=== PATIENT | male | born 1955 | race Caucasian/White ===

== ENCOUNTER 2017-11-05 02:53 | Inpatient (IN) | payer OTHER ==
--- NOTE | 2017-11-05 03:03 | CPEKG ---
Heart Rate: 84 RR Interval: 714 P-R Interval: 176 QRSD Interval: 100 QT Interval: 368 QTC Interval: 436 P Robertson: 62 QRS Robertson: -34 T Wave Robertson: -3 EKG Severity - BORDERLINE ECG - EKG Impression: SINUS RHYTHM EKG Impression: LEFT AXIS DEVIATION EKG Impression: BORDERLINE T WAVE ABNORMALITIES Electronically Signed By: [place] 07-Nov-2017 07:06:09
--- NOTE | 2017-11-05 03:30 | EDPHY ---
H & P Stated Complaint: sob, syncope Time Seen by Provider: 11/05/17 03:00 HPI/ROS: Chief Complaint: Syncope, shortness of breath HPI: A 62-year-old male who is visiting from [place]. He arrived at [place] about 24 hr prior to his presentation emergency department. Patient has visited and stayed for several months in the summertime at that elevation in the past. Patient had a syncopal episode. He was transported to [facility]. There he was noted to have an abnormal ECG with T-wave inversions. Patient also had a abnormal troponin at 0.161. Patient does not have any medical history. Takes no medicines. No family history of coronary disease. Does not smoke. No leg pain or swelling. Did have some shortness of breath was noted to be hypoxic with a 2 L oxygen requirement while in [facility]. Patient was transferred to [facility] for further evaluation. He is currently without complaint. He had no chest pain. No nausea or vomiting. No prior history of syncopal episodes in the past. ROS: 10 point Review of Systems is negative except as noted in the HPI. PMH: Denies Social History: No smoking, occasional alcohol, no recreational drug use Family History: non-contributory Physical Exam: Gen: Awake, Alert, No Distress HEENT: Nose: no rhinorrhea Eyes: PERRLA, EOMI Mouth: Moist mucosa Neck: Supple, no JVD Chest: nontender, lungs clear to auscultation Heart: S1, S2 normal, no murmur Abd: Soft, non-tender, no guarding Back: no CVA tenderness, no midline tenderness Ext: no edema, non-tender Skin: no rash Neuro: CN II-XII intact, Sensation grossly intact, Strength 5/5 in bilateral upper and lower extremities - Personal History Current Tetanus Diphtheria and Acellular Pertussis (TDAP): Yes - Medical/Surgical History Hx Asthma: No Hx Chronic Respiratory Disease: No Hx Diabetes: No Hx Cardiac Disease: No Hx Renal Disease: No Hx Cirrhosis: No Hx Alcoholism: No Hx HIV/AIDS: No Hx Splenectomy or Spleen Trauma: No Other PMH: cellulits - Social History Smoking Status: Current every day smoker Constitutional: Initial Vital Signs Temperature (C) 36.6 C 11/05/17 03:00 Heart Rate 88 11/05/17 03:00 Respiratory Rate 18 11/05/17 03:00 Blood Pressure 119/84 H 11/05/17 03:00 O2 Sat (%) 92 11/05/17 03:00 O2 Delivery Mode Room Air Allergies/Adverse Reactions: No Known Allergies Allergy (Unverified 11/05/17 03:01) Home Medications: Medication Instructions Recorded Aspirin 81mg (*) 11/05/17 Zyrtec 11/05/17 Medical Decision Making - Diagnostics EKG Interpretation: ECG time 3:01 a.m., sinus rhythm with a rate of 84. Left axis deviation, T- wave inversions from V1 through V4. ECG is unchanged from 1 earlier this morning. No acute ischemia. ED Course/Re-evaluation: I have reviewed the patient's records from [facility]. His studies are as follows. Basic metabolic panel: Sodium, 141, potassium 3.7, chloride 1 awake, carbon dioxide 22, glucose 109, BUN 11, creatinine 0.8. D- dimer is negative white blood cell count is 11.1, hemoglobin is 16, hematocrit 47.1, platelet count is 218. Troponin is 0.161. ECG has sinus rhythm. T-wave inversions from V1 through V4. Questionable Q-waves in leads 3. Patient is satting at 90% on room air. Repeat ECG shows no acute changes. Troponins been ordered. I have discussed with . Chest x-ray is a portable film with decreased inspiratory effort. Some cephalization. Patient is satting 90% on room air here. Repeat ECG is unchanged. Troponin is pending. I have discussed with Dr. Mclean who admit for further evaluation and check serial troponins. - Data Points Laboratory Results: 11/05/17 03:10 Troponin I 0.134 ng/mL H ng/mL (0.000-0.034) Departure - Departure Disposition: [facility] Inpatient Acute Clinical Impression: Syncope, Elevated troponin Condition: Fair Referrals: Patient,NotPresent [Unknown] - As per Instructions
--- NOTE | 2017-11-05 06:05 | PDGENHP ---
History and Physical - Chief Complaint Shortness of breath and syncope - History of Present Illness Source - patient provides history appears reliable. His is at bedside supplements details. EMR reviewed as well as accompanying paper chart from [place]. Case discussed with ED provider. HPI - pleasant 62-year-old gentleman with no significant past medical history who presents emergency department from [place] ED with complaints of increasing dyspnea and a syncopal episode that occurred this evening. Patient is visiting from [facility]. He has made several trips to [place] in the past. 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 Patient arrived with his 2 days ago on early Sunday morning. Patient reports that he was fatigued due to the driving. He had some minimal foot edema but no calf pain or swelling. Patient subsequently developed a little bit of shortness of breath which is not unusual when he comes elevation. Patient's symptoms progressed in this evening he noted some increased work of breathing and worsening fatigue. He denies any history of chest pain adamantly however when he came back from the bathroom in the evening before bed patient reports he felt a little lightheaded and short of breath. He grabbed his chest and told his "I think I am having a heart attack." At that point patient appeared to be sliding off the bed with his eyes open but unresponsive per the . She assisted him to the floor where patient remained unresponsive. He did not appear to be breathing and she"thought he was " the total time lapse of patient's symptoms lasted approximately 3 min. Patient did not receive any CPR. He did subsequently wake up and was verbal. Patient presented to [place] via EMS after called 911. Initial EMS report noted room air sat in the mid 80s with tachycardia. Patient reported to them that he felt fine. Patient received 324 mg of ASA. He denies any history of chest pain or angina. He denies any family history of cardiac coronary artery disease. He has not had a stress test previously. Patient does smoke cigars several per day or more History Information - Allergies/Home Medication List Allergies/Adverse Reactions: No Known Allergies Allergy (Unverified 11/05/17 03:01) Home Medications: Aspirin 81mg (*) 11/05/17 [Last Taken Unknown] Zyrtec 11/05/17 [Last Taken Unknown] I have personally reviewed and updated: family history, medical history, social history, surgical history - Past Medical History Additional medical history: Cellulitis, allergic rhinitis - Surgical History Reports: no pertinent surgical hx Additional surgical history: Denies - Family History Additional family history: Mother-DVT postoperatively. Negative for CAD or CVA - Social History Smoking Status: Current every day smoker Tobacco Use: Cigar (Three or more daily) Alcohol Use: None Drug Use: None Additional social history: Patient is . Lives primarily in [facility]. Cor status-full Review of Systems Review of Systems: ROS: 10pt was reviewed & negative except for what was stated in HPI & below Constitutional: Reports: no symptoms, other (Patient with URI approximately 2 weeks ago resolved) EENMT: Reports: no symptoms Cardiac: Reports: edema (Ft bilaterally), lightheadedness. Denies: palpitations Respiratory: Reports: cough, shortness of breath, other (See HPI) Gastrointestinal: Reports: no symptoms Genitourinary: Reports: no symptoms Muscolosketal: Reports: no symptoms Skin: Reports: no symptoms Neurological: Reports: no symptoms Physical Exam Physical Exam: Initial vital signs at [place] BP 120/81 pulse 103 respiratory rate 22 temperature 98.3 pulse ox 85% on room air Selected Entries 11/05/17 03:00 Blood Pressure Automatic Method Heart Rate 88 Respiratory 18 Rate O2 Sat (%) 92 Temperature (C) 36.6 C Blood Pressure 119/84 H Mean Arterial 95 Pressure (MAP) O2 Delivery Room Air Mode Temperature Oral Source Temp Pulse Resp BP Pulse Ox 36.8 C 90 22 H 108/63 91 L 11/05/17 05:26 11/05/17 05:26 11/05/17 05:26 11/05/17 05:26 11/05/17 05:26 Constitutional: no apparent distress, obese, other (NAD. Patient is sitting up in bed. at bedside.) Eyes: PERRL, anicteric sclera, EOMI, No scleral injection Ears, Nose, Mouth, Throat: dry mucous membranes, other (No nasal discharge. No oropharyngeal erythema or exudates.), No poor dentition Cardiovascular: regular rate and rhythym, no murmur, rub, or gallop, pulses symmetric bilaterally, No systolic murmur, No edema Peripheral Pulses: 2+: dorsalis-pedis (R), dorsalis-pedis (L) Respiratory: no respiratory distress, inspiratory crackles (Bibasilar left greater than right), No expiratory wheeze, No respiratory distress Gastrointestinal: normoactive bowel sounds, soft, non-tender abdomen, no palpable masses, other (Obese), No distension Genitourinary: no bladder tenderness, No hollingsworth in urethra Skin: warm, normal color, no rashes or abrasions, No mottled Musculoskeletal: full muscle strength, other (Patient sits up independently. Gait is normal.), No generalized weakness Neurologic: AAOx3, sensation intact bilaterally, No weakness, No facial droop ( Grossly nonfocal exam.) Psychiatric: interacting appropriately, not anxious, not encephalopathic, thought process linear Lab Data & Imaging Review Laboratory studies from [place] WBC 11.1, H&H 16.047.1, MCV of 93.0, platelet count 218, no bands D-dimer is negative Sodium 141, potassium 3.7, chloride 108, CO2 22, glucose 109, BUN 11, creatinine 0.8, GFR greater than 60, calcium 8.7 Troponin 0.161 Ethyl alcohol less than 10 Troponin I 0.134 ng/mL (0.000-0.034) H 11/05/17 03:10 Imaging Review: Chest x-ray from [place] was reviewed with [facility] ED provider. Dose minimal cardiomegaly. Pulmonary vascular congestion. Patient with the linear atelectasis in the right middle lobe. Visualized and Interpreted EKG results: Yes EKG additional interpertation: EKG from [place] 11/04/2017 at 11:22 p.m.- normal sinus rhythm rate 99. Q-waves in inferior leads and subtle T-wave inversions in the inferior with leads as well. No acute ST elevations. EKG at [facility] 11/05/17 at 3:01 a.m.-normal sinus rhythm in the 80s. Left axis deviation. Q-waves persists in lead [address] V AVF. No acute ST changes T- wave inversion and flattening in the inferior leads not significantly changed. Assessment & Plan Assessment: Syncope (Acute) - differential diagnosis including hypoxia related to altitude and possible HAPE versus ACS versus less likely neurologic. Patient's D-dimer was negative. At this time patient saturating 90% on room air down from [place] on in altitude. Will hold off on any diuretics at this time. Will plan for an echocardiogram and pending patient's troponins consider stress testing. Patient is status post 324 mg of aspirin prior to arrival at [facility]. Elevated troponin (Acute) - currently down trending slightly. This likely represents demand ischemia. Patient is adamant that he has not had experienced any chest pain rather he felt like his chest was tight knee was tight because he could not take in a deep breath. Patient without any history of stress testing previously. He does have some old Q-waves on the inferior leads on his EKG that remains unchanged. Additionally his sit T-wave inversion which could be related to patient's hypoxia. Will repeat troponin and further discuss with Cardiology in the morning as per day team. Hypoxia - supplemental oxygen p.r.n. to maintain O2 sats greater than 90%. Patient will require exertional pulse ox prior to discharge to ensure that he is not require supplementation at home. Tobacco use-cessation will be encouraged. Patient without any previous history of COPD or asthma. FEN - patient able to tolerate liquids. Will hold off on IV antibiotics with concerns for possible pulmonary edema. Electrolyte monitoring and replacement if needed. PPx - SCDs. Lovenox if patient should stay additional day. Course status is full Disposition patient mid observation at this time on PCU floor for further evaluation and testing.
[2017-11-05] MEDS ORDERED: ALBUTEROL 3 ML DEYVIAL IH PRN (06:33)
[2017-11-05] MEDS ORDERED: ACETAMINOPHEN 325 MG TAB PO PRN (06:33)
[2017-11-05] MEDS ORDERED: HYDROCODONE/APAP 5/325 TAB PO PRN (06:33)
[2017-11-05] MEDS ORDERED: ONDANSETRON 4 MG/2 ML VIAL IVP PRN (06:33)
--- NOTE | 2017-11-05 09:55 | ECHO ---
[email or web address] [address] [address] Main: [phone] Fax: Transthoracic Echocardiogram Name: ANA PALUMBO MR#: [id number] Study Date: 11/05/2017 Study Time: 08:24 AM Date of : 1955 Age: 62 year(s) Height: 182.9 cm (72 in.) Weight: 99.79 kg (220 lb.) BSA: 2.22 m2 Gender: Male Examination: Echo Indication: Hypoxia, Cardiac: syncope Image Quality: Contrast: Requested by: Lolita Mclean BP: 115 mmHg/60 mmHg Heart Rate: Rhythm: Normal sinus rhythm Indication: Hypoxia, Cardiac: syncope Procedure Staff Ground Equipment Mechanic: Dwayne Cooper RDCS Reading Physician: Beni Macario Requesting Provider: Conclusions: Normal global systolic LV function. EF is 76 %. Moderately dilated right ventricle. Mildly to moderately reduced right ventricular function. Flattened interventricular septum consistent with right ventricular pressure and/or volume overload septum. Trivial tricuspid valve regurgitation. The pulmonary artery pressure is moderately increased. The pulmonary pressures may be underestimated due to RV function and minimal TR jet.. Measurements: Chambers Valvular Assessment AV/MV Valvular Assessment TV/PV Normal Normal Normal Name Value Range Name Value Range Name Value Range Ao Andria (MM): 3.4 cm (2.2 cm-3.7 MV E Vmax: 0.47 m/s ( - ) TR Vmax: 3.38 mm/s ( - ) cm) MV A Vmax: 0.70 m/s ( - ) TR PGmax: 46 mmHg ( - ) IVSd (2D): 1.0 cm (0.6 cm-1.1 MV E/A: 0.67 ( - ) syst. PAP: 51 mmHg ( - ) cm) PV Vmax: 0.88 m/s (0.6 m/s-0.9 LVDd (2D): 3.7 cm (4.2 cm-5.9 m/s) cm) PV PGmax: 3 mmHg ( - ) LVDs (2D): 2.0 cm (2.1 cm-4 cm) LVPWd (2D): 0.9 cm (0.6 cm-1 cm) LVEF (2D): 76 (>=54 %) RVDd(2D): 5.1 cm (1.9 cm-3.8 cmmm) Continued Measurements: Chambers Valvular Assessment AV/MV Valvular Assessment TV/PV Patient: NAA PALUMBO Study Date: 11/05/2017 Page 1 of 2 08:24 AM Name Value Name Value Name Value LADs Lon.8 cm MV E' Septal: 0.04 m/s CVP (est.): 5 mmHg LA Area: 13.4 cm2 MV E/E' Septal: 13.00 LA Volume: 39 ml MV E/E' Lateral: 6.70 LA Volume Index: 17.6 ml/m2 Findings: Left Ventricle: Normal size left ventricle. Normal global systolic LV function. EF is 76 %. No regional wall motion abnormality. Diastolic dysfunction is present. . Right Ventricle: Moderately dilated right ventricle. Mildly to moderately reduced right ventricular function. Flattened interventricular septum consistent with right ventricular pressure and/or volume overload septum. Left Atrium: The left atrium is normal in size. Right Atrium: The right atrium is normal in size. Mitral Valve: The mitral valve is normal in appearance and function. There is no mitral valve regurgitation. Aortic Valve: The aortic valve is tri-leaflet and functions normally. Tricuspid Valve: The tricuspid valve appears normal. Trivial tricuspid valve regurgitation. The pulmonary artery pressure is moderately increased. The pulmonary pressures may be underestimated due to RV function and minimal TR jet.. Pulmonic Valve: The pulmonic valve is normal in appearance and function. Aorta: The aorta is normal. Pericardium: No pericardial effusion. (No Signature Object) Patient: ANA PALUMBO Study Date: 11/05/2017 Page 2 of 2 08:24 AM [id number]
[2017-11-05 10:13] LABS: PLATELET COUNT 208 10^3/uL (150-400)
[2017-11-05] MEDS ORDERED: NS 1,000 ML IV ONE (10:22)
[2017-11-05] MEDS ORDERED: diphenhydrAMINE 25 MG CAP PO ONE ×3 (10:22→12:58)
[2017-11-05] MEDS ORDERED: DIAZEPAM 5 MG TAB PO ONE ×2 (10:22→12:56)
[2017-11-05] MEDS ORDERED: FAMOTIDINE 20 MG TAB PO ONE ×2 (10:22→12:56)
[2017-11-05] MEDS ORDERED: ASPIRIN EC 325 MG TAB PO ONE (10:22)
[2017-11-05] MEDS: ENOXAPARIN 40 MG/0.4 ML SYR SC SCH (10:31)
[2017-11-05 10:42] LABS: INR 1.08 (0.83-1.16); PROTIME(PATIENT) 14.2 SEC (12.0-15.0)
[2017-11-05] MEDS ORDERED: IOPAMIDOL (ISOVUE 370) 100 ML BTL IV ONE (11:01)
--- NOTE | 2017-11-05 11:01 | GCON ---
[f rep st] CONSULTATION CARDIOLOGY CONSULTATION. DATE OF CONSULTATION: 11/05/2017 CHIEF COMPLAINT: Shortness of breath, single episode. HISTORY OF PRESENT ILLNESS: This is a 62-year-old male with no significant past medical history, who reports shortness of breath after being at elevation yesterday. The patient indicates that yesterda y he was getting significantly short of breath which he attributed to being a higher elevation. [place], he then had a syncopal episode yesterday evening. The patient and his indicated that naheed hernandez he did not have any seizure activity, twitching or defecation during this episode and was able to be aroused immediately after passing out. The patient indicates also that before the syncopal episo de happened, he had an acute onset of chest pain before the event. In the emergency room, the patient 's ECG showed sinus rhythm with flattened T-waves. Troponins were mildly elevated at 1.1, which are now down to 0.08. The patient is now saturating 95% on 2 L nasal cannula. Blood pressure is stable. Denies having any shortness of breath at this point, however, he has not been ambulatory. He does smoke cigars occasionally and denies any family history of cardiac disease. PAST MEDICAL HISTORY: Significant for cellulitis, allergic rhinitis. HOME MEDICATIONS: Include aspirin and Zyrtec. SOCIAL HISTORY: Patient is . Smokes occasional cigars. Lives in [place], [place], is [facility]. FAMILY HISTORY: Significant for DVT on the maternal side. REVIEW OF SYSTEMS: The patient denies any vision changes. No headache. No palpitations. No chest pain. No current shortness of breath. No abdominal pain. No extremity pain. No lower extremity sw elling. No neurologic deficits. No lymphadenopathy. PHYSICAL EXAM: VITAL SIGNS: Patient is afebrile 96, blood pressure 140/70, the heart rate of 100, r espirations 12, sat 93% on 2 L nasal cannula. HEENT: Pupils equal, round, reactive to light and acc ommodation. Extraocular muscles intact. CARDIOVASCULAR: Tachycardic S1, S2. LUNGS: Clear to auscu ltation bilaterally. ABDOMEN: Soft, nontender. No guarding. EXTREMITIES: No clubbing, no cyanosi s, no edema. NEUROLOGIC: The patient alert x3. PSYCHIATRIC: The patient is interacting appropriatel y. LABORATORY VALUES: Currently show a troponin of 0.08. Other laboratory values are currently pending at this point. Echocardiogram shows normal left ventricular function; however, his right ventricle appears to be moderately dilated with moderately reduced function with mildly elevated pulmonary hype rtension. ASSESSMENT AND PLAN: Shortness of breath/syncope. At this time, it appears the patient's echocardio gram shows right ventricular dilatation with reduced function. Given his acute shortness of breath o n presentation, I would like to rule out pulmonary embolism/deep vein thrombosis as a possible etiolo gy. We will check a lower extremity venous ultrasound and CTA of the chest at this point. If these tests are normal, then we will discuss with the patient about pursuing a left heart catheterization t o rule out underlying coronary disease. His is right ventricular dilatation/reduced function may be a function of sleep apnea, though the patient has not given a history of this condition. We will ord er the CTA and venous ultrasound first and proceed accordingly if these are normal. /[id number]/MODL
[2017-11-05] MEDS ORDERED: NITROGLYCERIN 0.4 MG BTL SL PRN (12:56)
[2017-11-05] MEDS ORDERED: TEMAZEPAM 15 MG CAP PO PRN (12:56)
[2017-11-05] MEDS ORDERED: FAMOTIDINE 20 MG TAB ONE (12:58)
--- NOTE | 2017-11-05 12:58 | PDPROPOC ---
Sedation Plan of Care Sedation Plan of Care: mental status noted, patient educated of risks, benefits , alternatives, patient can tolerate sedation ASA Classification: ASA 2 Planned drugs: fentanyl, midazolam Mallampati Score: Class 2 Mallampati Reference Image: Patient passed 3-3-2 rule?: Yes
--- NOTE | 2017-11-05 12:58 | PDHPUP ---
History & Physical Update H&P update statement: This history and physical update is based on an assessment of the patient which was completed after admission or registration (within 24 hours), but prior to the surgery/procedure. H&P update: H&P reviewed & patient examined, no change in patient's condition since H&P completed
[2017-11-05] MEDS ORDERED: DIAZEPAM 5 MG TAB ONE (12:59)
[2017-11-05] MEDS ORDERED: fentaNYL 100 MCG/2 ML INJ ONE (13:00)
[2017-11-05] MEDS ORDERED: LIDOCAINE 1% 300 MG/30 ML SDV ONE (13:00)
[2017-11-05] MEDS ORDERED: MIDAZOLAM 2 MG/2 ML VIAL ONE ×2 (13:00→14:04)
[2017-11-05] MEDS ORDERED: IOPAMIDOL (ISOVUE-370) 150 ML BTL IV ONE (13:01)
[2017-11-05] MEDS ORDERED: BIVALIRUDIN 250 MG/5 ML VIAL IV ONE (13:45)
[2017-11-05] MEDS ORDERED: CLOPIDOGREL BISULFATE 75 MG TAB ONE (13:45)
[2017-11-05] MEDS ORDERED: NITROGLYCERIN 1,500 MCG/15 ML VIAL MISC ONE (14:14)
[2017-11-05] MEDS ORDERED: ATROPINE SULFATE 1 MG/10 ML SYR IVP PRN (14:39)
--- NOTE | 2017-11-05 14:57 | CPEKG ---
Heart Rate: 88 RR Interval: 682 P-R Interval: 176 QRSD Interval: 116 QT Interval: 392 QTC Interval: 475 P Moro: 62 QRS Moro: 239 T Wave Moro: -11 EKG Severity - ABNORMAL ECG - EKG Impression: SINUS RHYTHM , RBBB EKG Impression: PROBABLE INFERIOR INFARCT, AGE INDETERMINATE Electronically Signed By: Ciro Lake 05-Nov-2017 20:36:56
--- NOTE | 2017-11-05 15:42 | CPIP ---
[f rep st] INVASIVE CARDIAC PROCEDURE DATE OF PROCEDURE: 11/05/2017 INDICATION FOR PROCEDURE: Non-ST segment elevation myocardial infarction. PROCEDURE PERFORMED: 1. Nonselective right groin sheathogram. 2. 7-Yemeni sheath, right common femoral vein. 3. Right heart catheterization with [place] catheter. 4. Bilateral selective coronary angiography. 5. Left heart catheterization. 6. Left angiogram. 7. Instantaneous wave-free ratio of mid left anterior descending artery. 8. Percutaneous intervention of mid left anterior descending artery utilizing 2 Synergy drug-eluting stents, 2.5 x 24 and 3.0 x 20. HISTORY: Briefly, this is a 62-year-old male with history of recent syncopal episode, shortness of b reath, chest pain, who came to the emergency room for further evaluation. The patient was found to h ave an elevated troponin of 0.1, as well as nonspecific T-wave flattening in the lateral leads. The patient had an echocardiogram which showed dilated right ventricle with normal LVEF. The patient und erwent a lower extremity venous ultrasound and CTA/PE which was negative for DVT or PE. Given these findings, the patient was consented for a left and right heart catheterization. DESCRIPTION OF PROCEDURE: Informed consent was obtained. The patient was brought to [facility], the right groin was prepped and draped in a sterile fashion. Using local lidocaine, a joanna rt 6-Yemeni sheath in the right common femoral artery was verified angiographically. A 7-Yemeni gonsalves th was placed to right femoral vein. A [place] catheter was advanced. Wedge pressure was a mean o f 18, A-wave of 24 over V-wave of 28. PA pressure was 53/22 with a mean of 36. RV pressure was syst olic 62/24 with an end of 25. RA pressure was mean of 13 with A-wave of 16 and V-wave of 16. AO sat was 95% with a PA sat of 75%, with a cardiac output by Merary of 6.2 with a Merary cardiac index of 2.8. The [place] catheter was then removed and a JL4 catheter was then advanced to the left coronary a rtery. Images of left coronary artery revealed normal left main. There was a small ramus intermediu s coming off the left circumflex system. Appeared to be a left dominant circulation. The left circu mflex appeared to be healthy and free of disease proximally, giving off a marginal 1 artery which was healthy and free of disease. The LPLS appeared to be healthy, free of disease. The LPDA bifurcated into 2 branches. The superior branch had diffuse high-grade distal 70% disease; however, this was a t the extreme distal portion of the vessel. The inferior portion of this vessel appeared to be healt hy and free of disease. The LAD had 2 focal areas of narrowing, 1 at the takeoff of the 1st diagonal artery which was approximately 60%; the 2nd was at the 2nd takeoff of the diagonal artery, which at least was tubular 60% to 70%. Distally, the LAD had mild plaque disease but no high-grade stenosis. After images were obtained, the JL4 catheter was removed. The JR4 catheter was advanced to the right coronary artery. Images of the right coronary artery revealed a nondominant right coronary artery w ith proximal 40% to 50% tubular disease. After this, the JR4 catheter was removed. A pigtail cathet er was advanced to the left ventricle. LVEDP is 16 mmHg. Left ventriculography in the AC position revealed an EF of 65% with no wall motion abnormalities. No pullback gradient between the LV and the aorta. INTERVENTIONAL REPORT: At this time, the patient was administered 600 mg of Plavix p.o. and started on Angiomax bolus and drip. We decided for further evaluation of the LAD, we would perform an iFR. At this time, utilizing an iFR wire and catheter, the iFR wire was placed down to the LAD, iFR was ob tained at this viewpoint, and an iFR number of 0.82 was obtained past the 2nd lesion in the LAD. A p ullback was performed where a 2nd iFR was obtained, which came back at approximately 0.89 across the 1st lesion, to rate it a 0.93. At this time, the iFR wire was then placed back distally. We decided to proceed with intervention of the mid distal LAD area. Predilatation commenced with a 2.5 x 20 balloon at 10 atmospheres. After this was performed, angiogr aphy was obtained which showed improved patency of this area. We then proceeded with stenting of thi s vessel with a 2.5 x 24 Synergy stent; this was deployed successfully at 14 atmospheres. After depl oyment, angiographic images were obtained, which showed excellent patency of the stented area. The s mall diagonal artery that was coming off this area did appear initially to have slower flow in it; ho wever, there was no clinical sequela or hemodynamic changes. We then noticed that the proximal area to the stent had somewhat narrowing with some potential plaque shift into the mid proximal LAD. We d ecided to cover this area in overlapping fashion with a 3.0 x 20 Synergy drug-eluting stent. This wa s deployed successfully at 14 atmospheres. After deployment, angiography was obtained which showed e xcellent patency of the stented regions and now, the 2nd diagonal artery, which was initially not see n quite well with the 1st stent deployment, with flow now being demonstrated into the 2nd diagonal ar tyrell. At this time, 200 mcg nitroglycerin was given to the patient IC. Images were retaken, which s how excellent patency of the LAD with FRANCISCO-3 flow and now flow into both diagonal arteries coming off the LAD. At this time, the wire was removed. The guide catheter was removed over a 0.035 wire. The right carmen in was closed using 6-Yemeni changes. The patient tolerated the procedure well with no complications . IMPRESSION: 1. Successful percutaneous coronary intervention of high-grade mid left anterior descending artery d isease diagnosed angiographically and by instantaneous wave-free ratio. 2. 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 Will be continued with medical ma nagement. 3. Nondominant right coronary artery. 4. Normal ejection fraction. 5. Moderate pulmonary hypertension. PLAN: The patient will have his venous sheath discontinued in 2 hours. We will continue aspirin and Plavix for at least 1 year's time. He is suggested to obtain a consult as an outpatient for a sleep study, as the patient does admit to having sleep apnea and clearly has evidence of pulmonary hyperte nsion. /[id number]/MODL
--- NOTE | 2017-11-05 15:55 | HOSPPROG ---
Hospitalist Progress Note Assessment/Plan: Prolonged service in addition to the time originally spent on the history and physical by Dr. Lolita Mclean, direct patient care, [id number] with patient and his , at bedside, for total 30 minutes, initially 11:35-11:45 a.m., then from 2:40-3 p.m., addressing the following: -the patient presented with syncope and elevated troponin level of 0.1 -the patient was seen by the multidisciplinary team on team rounds, the patient was chest pain and symptom free, discussed with him the current workup as well as the plan for cardiac catheterization today -initial echocardiogram demonstrated mild to moderate right ventricular dysfunction, moderate pulmonary hypertension, normal left ventricular function -EKG demonstrated T-wave inversions in leads V2 to V3 as well as a Q-wave in lead 3, troponin down trended, D-dimer was marginally elevated, lower extremity ultrasounds were negative for DVT and CT angiogram demonstrated no evidence of pulmonary emboli -discussed with Dr. Macario, he recommended taking the patient to the forestry laborer, and the patient was found to have 2 focal areas of stenosis in the left anterior descending artery, requiring 2 stents, the patient also has significant disease in his left posterior descending artery which are not amenable to stenting and will require maximal medical therapy -discussed the above with the patient and his , advised him that he will be initiated on new medications which will be prescribed tomorrow at discharge -the patient will receive all post catheter precautions, and the patient received Angiomax, currently has sheath in place -physical exam demonstrates lungs clear to auscultation bilaterally, patient is alert and communicative, no hematoma forming at the right groin catheter site, no tenderness, pulses are Dopplered bilateral dorsalis pedis -we recommend the patient remain on telemetry monitoring overnight given his high risk coronary lesions, he should be upgraded to inpatient admission status given that his syncope was most likely cardiogenic and secondary to non ST elevation myocardial infarction evidenced by the obstructive coronary lesions on cardiac catheterization, as well as Q-waves forming on EKG and elevated troponin level Objective: Vital Signs Temp Pulse Resp BP Pulse Ox 36.6 C 98 14 113/78 93 11/05/17 11:43 11/05/17 11:43 11/05/17 11:43 11/05/17 11:43 11/05/17 11:43 Laboratory Results 11/05/17 10:03 11/05/17 10:03 PT 14.2 SEC (12.0-15.0) 11/05/17 10:03 INR 1.08 (0.83-1.16) 11/05/17 10:03 ICD10 Worksheet Patient Problems: Problems Problem Status Onset Syncope Acute Elevated troponin Acute
[2017-11-05] MEDS ORDERED: LACTULOSE 20 GM/30 ML UDCUP PO PRN (15:56)
[2017-11-05] MEDS ORDERED: POLYETHYLENE GLYCOL 3350 17 GM PKT PO PRN (15:56)
[2017-11-05] MEDS ORDERED: MAGNESIUM HYDROXIDE 30 ML UDCUP PO PRN (15:56)
[2017-11-05] MEDS ORDERED: BISACODYL 10 MG SUPP PR PRN (15:56)
--- NOTE | 2017-11-05 16:31 | ASMTCMCOM ---
CM Note CM Note Notes: Patient admitted for syncope and elevated Troponins. Upon investigation in the labeling associate, he was found to have stenosis in the left anterior descending artery and had two stents placed. Although he is anxious to go home, he will be kept overnight on telemetry. Patient lives in [place] with his . They were visiting [place] when his symptoms developed. He will discharge independently with her when medically stable. Date Signed: 11/05/2017 04:31 PM Electronically Signed By:Ann Todd RN
--- NOTE | 2017-11-05 16:43 | PDMN ---
Medical Necessity Medical necessity: M-230 Myocardial Infarction - 2 days - (transferred from [facility] after syncopal episode w/associated shortness of breath; elevated troponins /NSTEMI per emergent cath: stents x 2 to the LAD, significant disease in L posterior descending not stentable, will require maximal medical therapy and ongoing telemetry; earlier syncope likely cardiogenic in nature.)
[2017-11-05] MEDS: SENNOSIDES/DOCUSATE SODIUM TAB PO SCH (21:51)
[2017-11-06 05:08] LABS: PLATELET COUNT 193 10^3/uL (150-400)
--- NOTE | 2017-11-06 07:14 | PDCARPN ---
Cardiology Progress Note Chief Complaint: SOB/CP Assessment/Plan: Assessment: s/p PCI Plan: 11/06/17 07:12 doing well OK to d/c home today should be d/c on plavix, ASA, statin needs to have sleep study as outpatient Subjective: doing wel Reviewed/Discussed With: multidisciplinary team Time Spent With Patient: 25 min Objective: Vital Signs (8 Hrs) Temp Pulse Resp BP Pulse Ox 11/06/17 04:00 36.9 C 94 16 113/81 H 94 11/06/17 00:00 37.0 C 96 16 117/75 95 Intake/Output (24 Hrs) 11/05/17 11/06/17 11/07/17 05:59 05:59 05:59 Intake Total 2710 Output Total 700 Balance 2009 Intake: Oral (ml) 1160 IV Intake (ml) 800 IV Infused (ml) 750 Ns 1,000 ml @ TKO IV 750 ONCALL ONE Rx#:[id number] Output: Urine (ml) 700 Urinal 700 Other: Weight 96.7 kg Intake Quantity Yes Sufficient Number of Voids Toilet 1 Number of Stools Toilet 1 Result Diagrams: 11/06/17 04:45 11/06/17 04:45 - Physical Exam Constitutional: healthy appearing Eyes: PERRL Ears, Nose, Mouth, Throat: moist mucous membranes Cardiovascular: regular rate and rhythm Peripheral Pulses: 1+: femoral (R), femoral (L) Respiratory: clear to auscultate bilat Gastrointestinal: normoactive bowel sounds Genitourinary: no suprapubic tenderness Skin: no rashes Musculoskeletal: no muscular tenderness Neurologic: AAOx3 ICD10 Worksheet Patient Problems: Problems Problem Status Onset Elevated troponin Acute Syncope Acute
[2017-11-06 07:37] VITALS: BP 102/75; PULSE 87; RESP 14; TEMP 97.5
[2017-11-06] MEDS: ENOXAPARIN 40 MG/0.4 ML SYR SC SCH (08:24)
[2017-11-06] MEDS: SENNOSIDES/DOCUSATE SODIUM TAB PO SCH (08:25)
--- NOTE | 2017-11-06 08:56 | CPEKG ---
Heart Rate: 96 RR Interval: 625 P-R Interval: 184 QRSD Interval: 108 QT Interval: 372 QTC Interval: 471 P [place]: 65 QRS [place]: -37 T Wave [place]: -20 EKG Severity - ABNORMAL ECG - EKG Impression: SINUS RHYTHM EKG Impression: BORDERLINE IVCD WITH LAD EKG Impression: NONSPECIFIC T ABNORMALITIES, ANTERIOR LEADS Electronically Signed By: C[place] 06-Nov-2017 19:16:13
[2017-11-06] MEDS ORDERED: ATORVASTATIN CALCIUM 10 MG TAB PO SCH (09:00)
[2017-11-06] MEDS ORDERED: MULTIVITAMINS 1 EACH TAB PO SCH (09:00)
[2017-11-06] MEDS ORDERED: ASCORBIC ACID 500 MG TAB PO SCH (09:00)
[2017-11-06] MEDS ORDERED: CLOPIDOGREL BISULFATE 75 MG TAB PO SCH (09:00)
[2017-11-06] MEDS ORDERED: CETIRIZINE 10 MG TAB PO SCH (09:00)
[2017-11-06] MEDS ORDERED: ASPIRIN 81 MG CHEWABLE TAB PO SCH (09:00)
--- NOTE | 2017-11-06 09:59 | PDDCSUM ---
Discharge Summary Discharge Summary: DISCHARGE SUMMARY FOLLOW-UP ITEMS: 1. Arrange outpatient sleep study 2. Arrange outpatient cardiology follow-up with cardiac rehab DATE OF ADMISSION: 11/05/2017 DATE OF DISCHARGE: 11/06/2017 DISCHARGE DIAGNOSES: 1. Non ST-elevation myocardial infarction 2. Acute syncope 3. Suspected obstructive sleep apnea CONSULTATIONS: Cardiology PROCEDURES / IMAGING: Cardiac catheterization demonstrating 70% flow-limiting stenosis in the mid LAD , 2 discrete lesions, requiring 2 stents, 40-50% stenosis in the RCA, 70% stenosis in the left posterior descending artery which was not amenable to stenting, preserved ejection fraction Echocardiogram demonstrating mild to moderate right ventricular systolic dysfunction, elevated RVSP, normal left ventricular systolic function CHIEF COMPLAINT: Acute syncope SUBJECTIVE: Patient is feeling well at time discharge, he is not having any recurrent shortness of breath, lightheadedness, any other symptoms PHYSICAL EXAM ON DISCHARGE: Systolic blood pressure is 100-110, heart rate 90, afebrile overnight, satting well on room air, alert awake oriented x3, no apparent distress, pain level 0/10 LABS ON DISCHARGE: Peak troponin 0.13, creatinine 0.8, potassium 4.5, hemoglobin 14.3 HOSPITAL COURSE BY PROBLEM: Mr. Meyer presented with acute syncope most likely secondary to hypoxia which was the result of an acute non ST-elevation myocardial infarction with flow- limiting stenosis detected in the mid LAD. The patient initially presented to [facility], where he was notably hypoxic, had leukocytosis, had an elevated troponin level. He was placed on supplemental oxygen, received full -dose aspirin, and was transferred to [facility]. The patient was ruled out for pulmonary embolism with negative lower extremity ultrasounds, negative CT angiogram of the chest, and he was taken to the cardiac lab animal technologist given his elevated troponin level, T-wave inversions in V2 and V3 on EKG as well as a vulva Q-wave in lead III. Cardiac catheterization demonstrated flow- limiting stenosis in the mid LAD, requiring 2 stents, and he also had approximately 70% stenosis in the left posterior descending artery, which was not amenable to stenting and should receive medical management. The patient was placed on aspirin, statin, Plavix, and will be discharged home with sublingual nitroglycerin to be used if he experiences any recurrent anginal symptoms. He is not being discharged on a beta-surinder or WERO-inhibitor given his low blood pressures at baseline, and his risk of orthostasis and recurrent syncope if he becomes hypotensive. After the patient's procedure, the patient did not experience any subsequent hypoxia, a safe to be discharged home without supplemental oxygen. We do suspect that he has underlying undiagnosed sleep apnea with right ventricular systolic dysfunction noted on echocardiogram, which does not correspond to his LAD lesion. We recommend outpatient sleep study as well as outpatient cardiac consultation and cardiac rehab. DISCHARGE MEDICATIONS: Please see official discharge medication reconciliation sheet in chart , continue other home medications with the addition of aspirin 81 mg daily, Plavix 75 mg daily, atorvastatin 10 mg daily, as needed sublingual nitroglycerin. DISCHARGE INSTRUCTIONS: Please schedule follow-up with an outpatient upper and bottom lacer hand within 1-2 weeks. The cath images have been loaded onto a CD for the patient's new upper and bottom lacer hand, and if any further issues/questions arise, please contact [facility] (attn: Dr. Macario). TIME SPENT: Greater than 30 minutes were spent on direct patient care, as well as discharge planning and preparation.
[2017-11-06 10:13] VITALS: O2SAT 91
--- NOTE | 2017-11-06 10:38 | ASMTLACE ---
LACE Length of stay for Answers: Less than 1 day current admission Acuity / Level of Answers: Yes Care: Did the patient have an inpatient admission? Comorbidities - select Answers: Coronary Atery Disease all that apply # of Emergency department Answers: 0 visits in the last 6 months Score: 5 Date Signed: 11/06/2017 10:38 AM Electronically Signed By:Katharina Kowalski RN
== END 2017-11-06 12:31 | disposition home or self-care (01) | DRG 247 ==
LOC: F2W 05:49 → OBSVTOIN 16:30
PROVIDERS: ADMIT Family Medicine; ATTEND Family Medicine
DX: I21.4 Non-ST elevation (NSTEMI) myocardial infarction (principal); I25.10 Atherosclerotic heart disease of native coronary artery without angina pectoris; G47.33 Obstructive sleep apnea (adult) (pediatric); F17.290 Nicotine dependence, other tobacco product, uncomplicated
CPT/HCPCS: C1725; C1760; C1769; C1874; C1887; C9606; J0583; J1644; J1650; J2250; J3010; Q9967